=== PATIENT | male | born 1965 | race Caucasian/White ===

== ENCOUNTER 2020-04-27 00:46 | Outpatient (CLI) | payer OTHER, SELFPAY ==
[2020-04-27 17:34] LABS: SARS-CoV-2 RNA PCR Negative
== END 2020-04-27 00:47 | disposition home or self-care (01) ==
LOC: ANHCOVIDDT 00:46
PROVIDERS: Visit Provider Internal Medicine Gastroenterology
DX: Z01.818 Encounter for other preprocedural examination (principal); Z11.59 Encounter for screening for other viral diseases
CPT/HCPCS: 87635; C9803; U0003

== ENCOUNTER 2020-04-29 02:01 | Day surgery (SDC) | payer OTHER, SELFPAY ==
[2020-04-26 09:28] VITALS: BMI 31.1
[2020-04-29 08:30] VITALS: BP 134/88; PULSE 67; RESP 18; TEMP 36.1; O2SAT 99
[2020-04-29] MEDS: LACTATED RINGERS 1,000 ML 150 ML IV CONT (08:40)
--- NOTE | 2020-04-29 09:02 | WPDANESEPPF ---
Anes - Initial Pre Proc Eval Procedure: Operation Date: 04/29/20 09:30 Proposed Procedures p Screening Colonoscopy - Wilder Velarde MD Date/Time: 04/29/20 09:02 Surgeon: Wilder Velarde MD Pre Op Diagnosis: Neoplasm Screening/ Hx Colon Polyps Patient Data Age: 54 Gender: M Height: 1.75 m Weight: 94.1 kg Last Vital Signs Temp 36.1 C L 04/29/20 08:30 Pulse 67 04/29/20 08:30 Resp 18 04/29/20 08:30 BP 134/88 04/29/20 08:30 Pulse Ox 99 04/29/20 08:30 Allergies Allergy/AdvReac Type Severity Reaction Status Date / Time No Known Allergies Allergy Verified 04/29/20 08:29 Home Medications Medication Instructions Recorded Confirmed Type amlodipine 5 mg PO DAILY 04/26/20 04/29/20 History metoprolol succinate 50 mg PO DAILY 04/26/20 04/29/20 History tamsulosin 0.4 mg PO DAILY 04/26/20 04/29/20 History trazodone 50 mg PO HS 04/26/20 04/29/20 History Patient hx anesthesia problems: none Family hx anesthesia problems: none PMFSH Past Medical History Medical History (Updated 04/28/20 @ 10:56 by Leandro Hill DO) Hypertension Osteoarthritis Surgical History Surgical History (Updated 04/28/20 @ 10:56 by Leandro Hill DO) History of rotator cuff surgery S/P partial colectomy 2019 Anes - Eval Final PreProcedure Day of Procedure 04/29/20 09:02 Patient weight: obese Heart: regular rate and rhythm Lungs: clear to auscultation and normal air movement Airway: Mallampati scale class III Neurological: alert and oriented Last oral intake: >/= 8 hours ASA classification: III Emergent: no Anesthetic plan: proceed Anesthesia type and monitoring: general GIVS and standard monitoring Informed Consent: The patient's anesthetic plan and its attendant risks and benefits were discussed with the patient/family/POA. Questions were solicited and answers provided to the satisfaction of the patient/family/POA.
--- NOTE | 2020-04-29 09:11 | WPDGICN ---
Assessment and Plan Assessment and plan (1) History of colon polyps: Code(s): Z86.010 - Personal history of colonic polyps Status: Acute Assessment and Plan: Patient has a history of a large villous adenoma requiring surgical resection by right hemicolectomy 1 year ago. Patient presents today for follow-up colonoscopy. His current weight appetite bowel movements are essentially normal. Plan is to continue fiber supplementation colonoscopy will be performed at this time and of follow-up colonoscopies at a regular interval in the future is advised. GI Consult Note Consult date/time: 04/29/20 09:11 HPI: Marcel Roy is a 54 year old male Seen in evaluation at the request of Dr. Olvin Roy. patient presents for follow-up colonoscopy. Patient had a very large cecal colon mass 1 year ago. Initial histology review revealed a villous adenoma. This required surgical resection. Patient has done well over the past year. He returns today for follow-up colonoscopy. His current weight appetite bowel movements are normal. He does report 2 or 3 bowel movements a day. But good control no bleeding. Review of Systems Review of Systems: All systems reviewed & are unremarkable except as noted in HPI and below PMFSH Past Medical History Medical History Hypertension Osteoarthritis Surgical History Surgical History (Updated 04/28/20 @ 10:56 by Leandro Hill DO) History of rotator cuff surgery S/P partial colectomy 2019 Meds Home Medications and Allergies Home Medications Medication Instructions Recorded Confirmed Type amlodipine 5 mg PO DAILY 04/26/20 04/29/20 History metoprolol succinate 50 mg PO DAILY 04/26/20 04/29/20 History tamsulosin 0.4 mg PO DAILY 04/26/20 04/29/20 History trazodone 50 mg PO HS 04/26/20 04/29/20 History Allergies Allergy/AdvReac Type Severity Reaction Status Date / Time No Known Allergies Allergy Verified 04/29/20 08:29 Vital Signs Vital Signs - 24 hr 04/29/20 08:30 Temperature 36.1 C L Pulse Rate 67 Respiratory Rate 18 Blood Pressure 134/88 Pulse Oximetry 99 Exam Narrative: Exam Narrative: Physical exam reveals patient to be alert. Vital signs stable. HEENT exam unremarkable. Lungs are clear to auscultation and percussion. Heart is without murmur or extra sounds. Abdominal exam bowel sounds are present soft nontender with no organomegaly. Digital external rectal exam is normal.
[2020-04-29 10:21] VITALS: BP 119/82; PULSE 69; RESP 16; O2SAT 97
[2020-04-29 10:31] VITALS: BP 134/91; PULSE 60; RESP 16; O2SAT 100
[2020-04-29 10:43] VITALS: BP 143/74; PULSE 64; RESP 16; O2SAT 100
== END 2020-04-29 10:58 | disposition home or self-care (01) ==
PROVIDERS: PCP Emergency Medicine; Visit Provider Internal Medicine Gastroenterology
PROC: 0DJD8ZZ Inspection of Lower Intestinal Tract, Via Natural or Artificial Opening Endoscopic (ICD-10-PCS; CPT 45378; principal; 2020-04-29 09:30)
DX: Z12.11 Encounter for screening for malignant neoplasm of colon (principal); Z86.010 Personal history of colon polyps; K64.8 Other hemorrhoids; Z98.0 Intestinal bypass and anastomosis status; I10 Essential (primary) hypertension; E66.9 Obesity, unspecified; Z68.30 Body mass index [BMI] 30.0-30.9, adult; Z79.899 Other long term (current) drug therapy
CPT/HCPCS: G0105; J2704; J7120

== ENCOUNTER → 2021-03-04 10:29 | Outpatient (CLI) | payer OTHER, SELFPAY ==
--- NOTE | ~2021-03-04 | MR_ITS ---
EXAMINATION: MR cervical spine wo con EXAM DATE: 03/04/2021 11:25 INDICATION: Cervical radiculopathy marium shoulder pain marium arm/hand pain/numbness x yrs. TECHNIQUE: Multi-sequential, multiplanar MR images of the cervical spine were obtained without contra st. Axial T2, axial T2 MERGE sequence. Sagittal T1, T2, T2 fat saturation images also obtained. Com parison is made to prior examination from 11/08/2017. FINDINGS: Mild loss of the C5-C7 disc height. The vertebral bodies are aligned in the AP dimension. The spinal cord signal intensity and intrinsic morphology is normal. Cervicomedullary junction is nor mal in appearance. There are no suspicious marrow signal abnormalities. Paraspinal soft tissue is unr emarkable. Level by level evaluation: C2-C3: Disc does not extend beyond the endplate margin. Uncovertebral joint arthropathy: Mild left. Facet joint arthropathy: Mild to moderate left, mild right. Neural foraminal stenosis: No stenosis. Central canal stenosis: No stenosis. C3-C4: Disc does not extend beyond the endplate margin. Uncovertebral joint arthropathy: Mild bilateral. Facet joint arthropathy: Moderate to severe bilateral. Neural foraminal stenosis: Mild to moderate bilateral. Central canal stenosis: No stenosis. C4-C5: There is a mild diffuse disc bulge. Uncovertebral joint arthropathy: Moderate right, mild left. Facet joint arthropathy: Severe right, moderate left. Neural foraminal stenosis: Moderate to severe right. Central canal stenosis: Mild. C5-C6: There is a mild diffuse disc bulge. Uncovertebral joint arthropathy: Moderate bilateral, right greater than left. Facet joint arthropathy: Severe right, moderate left. Neural foraminal stenosis: Moderate to severe right, moderate left. Central canal stenosis: Mild. C6-C7: There is a mild diffuse disc bulge. Uncovertebral joint arthropathy: Moderate to severe left, moderate right. Facet joint arthropathy: Moderate bilateral. Neural foraminal stenosis: Severe left, mild to moderate right. Central canal stenosis: Mild. C7-T1: Disc does not extend beyond the endplate margin. Uncovertebral joint arthropathy: Mild bilateral. Facet joint arthropathy: Mild bilateral. Neural foraminal stenosis: No stenosis. Central canal stenosis: No stenosis. Evidence of mild interval progression spondylosis compared to prior study. IMPRESSION: 1. Significant multilevel neural foraminal stenosis as detailed above. Reviewed, dictated and finalized at location B.
== END ==
DX: M54.12 Radiculopathy, cervical region (principal); M50.30 Other cervical disc degeneration, unspecified cervical region
CPT/HCPCS: 72141

== ENCOUNTER 2025-10-12 02:55 | Day surgery (SDC) | payer OTHER, SELFPAY ==
[2025-09-20 13:20] VITALS: BMI 31.7
[2025-10-12 07:32] VITALS: BP 128/93; PULSE 77; RESP 18; TEMP 36.1; O2SAT 100; BMI 30.9
[2025-10-12] MEDS: LACTATED RINGERS 1,000 ML 150 ML IV CONT (07:44)
--- NOTE | 2025-10-12 08:00 | WPDANESEPPF ---
Anes - Initial Pre Proc Eval Procedure: Operation Date: 10/12/25 09:00 Proposed Procedures p Screening Colonoscopy - Bc Dale MD Date/Time: 10/12/25 08:00 Surgeon: Bc Dale MD Pre Op Diagnosis: Screening Patient Data Age: 60 Gender: M Height: 1.75 m Weight: 95.2 kg Last Vital Signs Temp 36.1 C L 10/12/25 07:32 Pulse 77 10/12/25 07:32 Resp 18 10/12/25 07:32 BP 128/93 H 10/12/25 07:32 Pulse Ox 100 10/12/25 07:32 O2 Del Method Room Air 10/12/25 07:32 Allergies Allergy/AdvReac Type Severity Reaction Status Date / Time No Known Allergies Allergy Verified 10/12/25 07:31 Home Medications ?Medication ?Instructions ?Recorded ?Confirmed ?Type amlodipine 5 mg tablet 5 mg PO DAILY 04/26/20 10/12/25 History tamsulosin 0.4 mg capsule 0.4 mg PO DAILY 04/26/20 10/12/25 History trazodone 100 mg tablet 50 mg PO HS 04/26/20 10/12/25 History nebivolol 20 mg tablet 20 mg PO DAILY 09/20/25 10/12/25 History Patient hx anesthesia problems: none Family hx anesthesia problems: none Results Review: All pre-operative results and documents have been reviewed as part of the pre-operative evaluation. [facility] Past Medical History Medical History Osteoarthritis Hypertension Surgical History Surgical History History of rotator cuff surgery S/P partial colectomy 2019 Social History Social History Smoking status: Current every day smoker Tobacco type: cigars Alcohol intake: never Substance use: never Substance use type: does not use Living arrangements: with family Spiritual care concerns: No Anes - Eval Final PreProcedure Day of Procedure 10/12/25 08:00 Patient weight: obese Heart: regular rate and rhythm Lungs: clear to auscultation Airway: Mallampati scale class III Neurological: alert and oriented Last oral intake: >/= 8 hours ASA classification: III Emergent: no Anesthetic plan: proceed Anesthesia type and monitoring: general GIVS and standard monitoring Results Review: All pre-operative results and documents have been reviewed as part of the pre-operative evaluation. Informed Consent: The patient's anesthetic plan and its attendant risks and benefits were discussed with the patient/family/POA. Questions were solicited and answers provided to the satisfaction of the patient/family/POA.
--- NOTE | 2025-10-12 08:39 | PM.HPGS ---
History of Present Illness History of Present Illness Consent: Risks, benefits, and alternatives have been discussed and questions answered. Patient agrees to proceed with procedure. Chief complaint: Screening Narrative: Marcel Roy is a 60 year old male here for another colonoscopy, last one 2019, he has a history of a large villous adenoma requiring surgical resection by right hemicolectomy 2019 Review of Systems Review of Systems: All systems reviewed & are unremarkable except as noted in HPI and below PMFSH Past Medical History Medical History Osteoarthritis Hypertension Surgical History Surgical History History of rotator cuff surgery S/P partial colectomy 2019 Social History Social History Smoking status: Current every day smoker Tobacco type: cigars Alcohol intake: never Substance use: never Substance use type: does not use Living arrangements: with family Spiritual care concerns: No Meds Home Medications and Allergies Home Medications ?Medication ?Instructions ?Recorded ?Confirmed ?Type amlodipine 5 mg tablet 5 mg PO DAILY 04/26/20 10/12/25 History tamsulosin 0.4 mg capsule 0.4 mg PO DAILY 04/26/20 10/12/25 History trazodone 100 mg tablet 50 mg PO HS 04/26/20 10/12/25 History nebivolol 20 mg tablet 20 mg PO DAILY 09/20/25 10/12/25 History Allergies Allergy/AdvReac Type Severity Reaction Status Date / Time No Known Allergies Allergy Verified 10/12/25 07:31 Vital Signs Vital Signs - 24 hr 10/12/25 07:32 Temperature 97 F L Pulse Rate 77 Respiratory Rate 18 Blood Pressure 128/93 H Pulse Oximetry 100 Oxygen Delivery Room Air Exam Const: General: comfortable and no acute distress HENMT: Face/Nose/Sinus: Normal nares present Eyes: General: appearance normal, both eyes and all related structures Neck: Neck: no JVD Resp: Auscultation: clear to auscultation bilaterally Cardio: Rate: regular rate Rhythm: regular rhythm GI: Inspection: non-distended GI Palp: Yes Soft to palpation Skin: General skin exam: normal color Extrem: General: normal to inspection Psych: Mental Status: mental status grossly normal Assessment and Plan Assessment and plan (1) History of colon polyps: Code(s): Z86.010 - Personal history of colon polyps Status: Acute Assessment and Plan: colonoscopy
[2025-10-12 08:52] VITALS: BP 104/68; PULSE 62; RESP 12; O2SAT 97
[2025-10-12 09:02] VITALS: BP 106/62; PULSE 60; RESP 12; O2SAT 99
[2025-10-12 09:12] VITALS: BP 111/78; PULSE 60; RESP 12; O2SAT 95
== END 2025-10-12 09:18 | disposition home or self-care (01) ==
PROVIDERS: PCP Emergency Medicine; Referring Provider Emergency Medicine; Visit Provider Internal Medicine Gastroenterology
PROC: 0DJD8ZZ Inspection of Lower Intestinal Tract, Via Natural or Artificial Opening Endoscopic (ICD-10-PCS; CPT 45378; principal; 2025-10-12 09:00)
DX: Z12.11 Encounter for screening for malignant neoplasm of colon (principal); K64.8 Other hemorrhoids; I10 Essential (primary) hypertension; M19.90 Unspecified osteoarthritis, unspecified site; F17.290 Nicotine dependence, other tobacco product, uncomplicated; E66.9 Obesity, unspecified; Z68.31 Body mass index [BMI] 31.0-31.9, adult; Z98.890 Other specified postprocedural states; Z98.0 Intestinal bypass and anastomosis status; Z90.49 Acquired absence of other specified parts of digestive tract; Z86.0100 Personal history of colon polyps, unspecified
CPT/HCPCS: 45378; J2003; J2704; J7120